=== PATIENT | female | born 1965 | race Two or more races ===

== ENCOUNTER 2017-12-05 18:26 | Emergency (ER) | payer MEDICAID ==
[~2017-12-05] VITALS: Ht 154.9 cm; Wt 79.8 kg
[~2017-12-05 18:26] MED LIST: PROC5TAB56 PO
[2017-12-05 18:57] LABS: BASOPHILS % (AUTO) 0.5 % (0-1); EOSINOPHILS # (AUTO) 0.1 X10'3 (0-0.9); EOSINOPHILS % (AUTO) 1.5 % (0-6); HEMATOCRIT 43.8 % (35.0-45.0); HEMOGLOBIN 14.9 g/dl (12.0-16.0); LYMPHOCYTES # (AUTO) 1.8 X10'3 (1.1-4.8); LYMPHOCYTES % (AUTO) 33.1 % (21-51); MEAN CORPUSCULAR HGB CONC 34.1 % (33.0-36.5); MEAN PLATELET VOLUME 9.8 FL (7.4-10.4); MONOCYTES # (AUTO) 0.7 X10'3 (0-0.9); MONOCYTES % (AUTO) 13.4 % (2-12); NEUTROPHILS # (AUTO) 2.8 X10'3 (1.8-7.7); NEUTROPHILS % (AUTO) 51.5 % (42-75); PLATELET COUNT 218 X10'3 (140-440); RED BLOOD COUNT 4.99 X10'6 (4.20-5.60); RED CELL DISTRIBUTION WIDTH 13.3 % (11.5-14.5); WHITE BLOOD COUNT 5.4 X10'3 (4.5-11.0)
[2017-12-05 19:22] LABS: ALANINE AMINOTRANSFERASE 83 U/L (12-78); ALBUMIN/GLOBULIN RATIO 0.9 (1.1-1.5); ALKALINE PHOSPHATASE 81 IU/L (46-116); ANION GAP 7 (8-16); ASPARTATE AMINO TRANSFERASE 40 U/L (10-37); BILIRUBIN,TOTAL 0.7 MG/DL (0.1-1.0); BLOOD UREA NITROGEN 15 MG/DL (7-18); BUN/CREATININE RATIO 16.5 (6.6-38.0); CALCIUM 9.8 MG/DL (8.5-10.1); CHLORIDE 100 MMOL/L (99-107); CREATININE 0.91 MG/DL (0.40-0.90); GLUCOSE 93 MG/DL (70-104); LIPASE 123 U/L (73-393); POTASSIUM 3.7 MMOL/L (3.5-5.1); SODIUM 134 MMOL/L (135-145); TOTAL CARBON DIOXIDE 27.2 MMOL/L (24-32); TOTAL PROTEIN 8.6 G/DL (6.4-8.2); eGFR 65 ML/MIN
[2017-12-05 19:32] LABS: URINE HCG NEGATIVE (NEG)
[2017-12-05 19:34] LABS: COLOR,URINE YELLOW (Yellow); GLUCOSE, URINE NEGATIVE (Neg); KETONES,URINE TRACE mg/dl (Neg); NITRITES, URINE NEGATIVE (Neg); OCCULT BLOOD,URINE NEGATIVE (Neg); PH,URINE 5.5 (4.8-8.0); PROTEIN,URINE TRACE mg/dl (Neg); UA COLLECTION TYPE CLN CATCH MIDSTREAM; UROBILINOGEN,URINE 0.2 E.U/dL (0.2-1.0)
[2017-12-05 19:35] LABS: LEUKOCYTE ESTERASE ,URINE NEGATIVE (Neg)
[2017-12-05 19:36] LABS: CLARITY,URINE CLEAR (Clear)
[2017-12-05] MEDS ORDERED: ketorolac trometh. 30mg/ml inj. IV ONE (20:15)
[2017-12-05] MEDS ORDERED: ondansetron/PF 4mg/2ml inj IV ONE (20:15)
[2017-12-05] MEDS ORDERED: normal saline 1000ML IV soln IVB ONE (20:15)
[2017-12-05] MEDS ORDERED: ketorolac tromethamine 15mg/ml inj. IV ONE (20:20)
[2017-12-05 20:26] VITALS: BP 155/74
[2017-12-05 20:28] LABS: AMORPHOUS URATES 1+; BACTERIA,URINE FEW /HPF (Neg); CAL OXALATE CRYSTALS 1+ /HPF (NEGATIVE); MUCUS STRANDS MODERATE /LPF (Neg); RBC,URINE NONE SEEN /HPF (0-2); SQUAMOUS EPITHELIAL CELL,UR MANY /LPF (FEW); WBC,URINE 0-4 /HPF (0-4)
[2017-12-05 20:29] LABS: HYALINE CASTS 0-3 /LPF (NEGATIVE)
== END 2017-12-05 21:45 | disposition home or self-care (01) ==
LOC: ER 18:27
DX: R10.32 Left lower quadrant pain (principal); E11.9 Type 2 diabetes mellitus without complications; Z88.0 Allergy status to penicillin
CPT/HCPCS: 36415; 74176; 80053; 81001; 81025; 83690; 85025; 85610; 96361; 96374; 96375; 99285; J2405; J7030; J1885

== ENCOUNTER 2017-12-07 17:42 | Emergency (ER) | payer MEDICAID ==
[~2017-12-07] VITALS: Ht 154.9 cm; Wt 81.8 kg
[2017-12-07] MEDS ORDERED: ketorolac tromethamine 15mg/ml inj. IM ONE (18:10)
[2017-12-07] MEDS ORDERED: IBUP-1984 PO (18:11)
[2017-12-07] MEDS ORDERED: CYCL-1 PO (18:11)
[2017-12-07 18:36] VITALS: BP 141/80
== END 2017-12-07 18:37 | disposition home or self-care (01) ==
LOC: ER 17:42
DX: S76.912A Strain of unspecified muscles, fascia and tendons at thigh level, left thigh, initial encounter (principal); E11.9 Type 2 diabetes mellitus without complications; Z88.0 Allergy status to penicillin; X50.0XXA Overexertion from strenuous movement or load, initial encounter; Y93.89 Activity, other specified; Y92.091 Bathroom in other non-institutional residence as the place of occurrence of the external cause; Y99.8 Other external cause status
CPT/HCPCS: 96372; 99284; J1885

== ENCOUNTER 2018-06-21 08:56 | Emergency (ER) | payer MEDICAID ==
[~2018-06-21] VITALS: Ht 154.9 cm; Wt 85.0 kg
[~2018-06-21 08:56] MED LIST changes: +CYCL-1 PO
[2018-06-21] MEDS ORDERED: GUAI473S11 PO (09:48)
[2018-06-21] MEDS ORDERED: NYST1000 PO (09:48)
[2018-06-21] MEDS ORDERED: ATRNS (09:48)
[2018-06-21] MEDS ORDERED: BENZ-38 PO (09:48)
[2018-06-21 10:54] VITALS: BP 172/97
== END 2018-06-21 10:56 | disposition home or self-care (01) ==
LOC: ER 08:58
DX: R09.81 Nasal congestion (principal); B37.9 Candidiasis, unspecified; E11.9 Type 2 diabetes mellitus without complications; Z88.0 Allergy status to penicillin
CPT/HCPCS: 99283

== ENCOUNTER 2018-07-12 08:47 | Emergency (ER) | payer MEDICAID ==
[~2018-07-12] VITALS: Ht 157.5 cm; Wt 83.2 kg
[~2018-07-12 08:47] MED LIST changes: +ATRNS; +BENZ-38 PO; +DEC4T PO
[2018-07-12 08:49] VITALS: BP 161/89
[2018-07-12] MEDS ORDERED: OLOP2.5D OP (09:10)
== END 2018-07-12 09:45 | disposition home or self-care (01) ==
LOC: ER 08:47
DX: H26.9 Unspecified cataract (principal); H53.8 Other visual disturbances; H57.89 Other specified disorders of eye and adnexa; E11.9 Type 2 diabetes mellitus without complications; Z88.0 Allergy status to penicillin
CPT/HCPCS: 99283

== ENCOUNTER 2019-03-26 22:04 | Emergency (ER) | payer MEDICAID ==
[~2019-03-26] VITALS: Ht 154.9 cm; Wt 82.0 kg
[~2019-03-26 22:04] MED LIST changes: -BENZ-38 PO; +OLOP2.5D OP
[2019-03-26 22:09] VITALS: BP 148/86
[2019-03-26] MEDS: proparacaine 0.5% ophthalmic drops 15ml EACHEYE ONE ×2 (23:22→23:23)
[2019-03-26] MEDS ORDERED: ERYT1OIN6 LEFTEYE (23:29)
[2019-03-26] MEDS ORDERED: ACYC-202 PO (23:29)
[2019-03-26] MEDS ORDERED: HYDR-3965 PO (23:29)
[2019-03-26] MEDS ORDERED: erythromycin ophthalmic ointment 1gm tube LEFTEYE ONE (23:30)
[2019-03-26] MEDS ORDERED: HYDROcodone/acetaminophen 5mg/325mg tablet PO ONE (23:30)
== END 2019-03-27 00:17 | disposition home or self-care (01) ==
LOC: ER 22:04
DX: H57.12 Ocular pain, left eye (principal); E11.9 Type 2 diabetes mellitus without complications; Z88.0 Allergy status to penicillin; Z79.899 Other long term (current) drug therapy
CPT/HCPCS: 99284

== ENCOUNTER 2019-07-03 08:39 | Emergency (ER) | payer MEDICAID ==
[~2019-07-03] VITALS: Ht 154.9 cm; Wt 81.8 kg
[2019-07-03 08:41] VITALS: BP 146/97
[2019-07-03] MEDS ORDERED: ketorolac tromethamine 15mg/ml inj. IM ONE (09:10)
[2019-07-03] MEDS ORDERED: BUPIVAcaine 0.5% W/EPI /PF 30ml vial IJ ONE (09:25)
== END 2019-07-03 10:53 | disposition home or self-care (01) ==
LOC: ER 08:40
DX: M25.512 Pain in left shoulder (principal); E11.9 Type 2 diabetes mellitus without complications; Z88.0 Allergy status to penicillin; Z79.899 Other long term (current) drug therapy; W18.39XA Other fall on same level, initial encounter; Y93.89 Activity, other specified; Y92.89 Other specified places as the place of occurrence of the external cause; Y99.8 Other external cause status
CPT/HCPCS: 20552; 73030; 96372; 99284; J1885

== ENCOUNTER 2022-01-27 19:13 | Emergency (ER) | payer MEDICAID ==
[~2022-01-27] VITALS: Ht 154.9 cm; Wt 62.0 kg
[~2022-01-27 19:13] MED LIST changes: -OLOP2.5D OP; +OLOP2.5D12 OP
[2022-01-27 19:44] VITALS: BP 140/81
[2022-01-27 20:15] LABS: BASOPHILS # (AUTO) 0.1 X10'3 (0-0.2); BASOPHILS % (AUTO) 0.4 % (0-1); EOSINOPHILS # (AUTO) 0.1 X10'3 (0-0.9); EOSINOPHILS % (AUTO) 1.1 % (0-6); HEMATOCRIT 41.6 % (35.0-45.0); HEMOGLOBIN 14.8 g/dl (12.0-16.0); LYMPHOCYTES # (AUTO) 1.7 X10'3 (1.1-4.8); LYMPHOCYTES % (AUTO) 13.9 % (21-51); MEAN CORPUSCULAR HEMOGLOBIN 30.2 PG (27.0-31.0); MEAN CORPUSCULAR HGB CONC 35.5 g/dL (33.0-36.5); MEAN CORPUSCULAR VOLUME 85.1 FL (78-98); MEAN PLATELET VOLUME 8.9 FL (7.4-10.4); MONOCYTES # (AUTO) 0.9 X10'3 (0-0.9); MONOCYTES % (AUTO) 7.5 % (2-12); NEUTROPHILS # (AUTO) 9.2 X10'3 (1.8-7.7); NEUTROPHILS % (AUTO) 77.1 % (42-75); PLATELET COUNT 242 X10'3 (140-440); RED BLOOD COUNT 4.89 X10'6 (4.20-5.60); RED CELL DISTRIBUTION WIDTH 13.4 % (11.5-14.5)
[2022-01-27 20:26] LABS: ALANINE AMINOTRANSFERASE 21 U/L (12-78); ALBUMIN 3.5 G/DL (3.4-5.0); ALBUMIN/GLOBULIN RATIO 0.6 (1.1-1.5); ALKALINE PHOSPHATASE 110 IU/L (46-116); ANION GAP 10 (8-16); ASPARTATE AMINO TRANSFERASE 13 U/L (10-37); BILIRUBIN,TOTAL 0.7 MG/DL (0.1-1.0); BLOOD UREA NITROGEN 12 MG/DL (7-18); BUN/CREATININE RATIO 15.2 (6.6-38.0); CALCIUM 9.7 MG/DL (8.5-10.1); CHLORIDE 91 MMOL/L (99-107); CREATININE 0.79 MG/DL (0.40-0.90); GLUCOSE 312 MG/DL (70-104); POTASSIUM 4.1 MMOL/L (3.5-5.1); SODIUM 128 MMOL/L (135-145); TOTAL CARBON DIOXIDE 27.4 MMOL/L (24-32); eGFR 75 ML/MIN
[2022-01-29] MEDS ORDERED: SULF1TAB49 PO (22:47)
== END 2022-01-28 13:17 | disposition left against medical advice (07) ==
LOC: ER 19:14
DX: M54.9 Dorsalgia, unspecified (principal); Z53.21 Procedure and treatment not carried out due to patient leaving prior to being seen by health care provider; M54.2 Cervicalgia
CPT/HCPCS: 36415; 71045; 80053; 82948; 83880; 84484; 85025; 93005; 99285

== ENCOUNTER 2022-01-29 15:14 | Emergency (ER) | payer MEDICAID ==
[~2022-01-29] VITALS: Ht 157.5 cm; Wt 81.8 kg
[2022-01-29] MEDS ORDERED: normal saline 1000ML IV soln IVB ONE (15:20)
[2022-01-29] MEDS ORDERED: normal saline 1000ml 1,000 ML IV ONE (15:50)
[2022-01-29 16:02] LABS: BASOPHILS % (AUTO) 0.3 % (0-1); EOSINOPHILS # (AUTO) 0.1 X10'3 (0-0.9); EOSINOPHILS % (AUTO) 1.4 % (0-6); HEMATOCRIT 39.5 % (35.0-45.0); HEMOGLOBIN 13.7 g/dl (12.0-16.0); LYMPHOCYTES # (AUTO) 1.2 X10'3 (1.1-4.8); LYMPHOCYTES % (AUTO) 11.3 % (21-51); MEAN CORPUSCULAR HEMOGLOBIN 30.4 PG (27.0-31.0); MEAN CORPUSCULAR HGB CONC 34.6 g/dL (33.0-36.5); MEAN CORPUSCULAR VOLUME 87.9 FL (78-98); MEAN PLATELET VOLUME 9.7 FL (7.4-10.4); MONOCYTES % (AUTO) 9.5 % (2-12); NEUTROPHILS # (AUTO) 8.4 X10'3 (1.8-7.7); NEUTROPHILS % (AUTO) 77.5 % (42-75); PLATELET COUNT 248 X10'3 (140-440); RED BLOOD COUNT 4.49 X10'6 (4.20-5.60); RED CELL DISTRIBUTION WIDTH 13.5 % (11.5-14.5); WHITE BLOOD COUNT 10.9 X10'3 (4.5-11.0)
[2022-01-29 16:32] LABS: ALANINE AMINOTRANSFERASE 19 U/L (12-78); ALBUMIN 3.1 G/DL (3.4-5.0); ALBUMIN/GLOBULIN RATIO 0.6 (1.1-1.5); ALKALINE PHOSPHATASE 112 IU/L (46-116); ANION GAP 11 (8-16); ASPARTATE AMINO TRANSFERASE 15 U/L (10-37); BILIRUBIN,TOTAL 0.5 MG/DL (0.1-1.0); BLOOD UREA NITROGEN 13 MG/DL (7-18); BUN/CREATININE RATIO 12.3 (6.6-38.0); CALCIUM 9.3 MG/DL (8.5-10.1); CHLORIDE 90 MMOL/L (99-107); CREATININE 1.06 MG/DL (0.40-0.90); MAGNESIUM 1.4 MG/DL (1.5-2.4); PHOSPHORUS 3.3 MG/DL (2.3-4.5); POTASSIUM 4.1 MMOL/L (3.5-5.1); SODIUM 125 MMOL/L (135-145); TOTAL CARBON DIOXIDE 24.5 MMOL/L (24-32); TOTAL PROTEIN 8.1 G/DL (6.4-8.2); eGFR 53 ML/MIN
[2022-01-29 16:42] LABS: GLUCOSE 552 MG/DL (70-104)
[2022-01-29 16:43] VITALS: BP 143/85
[2022-01-29] MEDS ORDERED: insulin regular, human 10 units/0.1 ml syringe IV ONE (19:40)
[2022-01-29] MEDS ORDERED: sulfamethoxazole/trimethoprim DS (800/160mg) tablet PO ONE (21:50)
[2022-01-29] MEDS ORDERED: HYDROcodone/acetaminophen 5mg/325mg tablet PO ONE (22:05)
[2022-01-29] MEDS ORDERED: ondansetron 4mg rapidly disintigrating tab PO ONE (22:10)
[2022-01-29] MEDS ORDERED: SULF1TAB49 PO (22:47)
== END 2022-01-30 00:10 | disposition home or self-care (01) ==
LOC: ER 15:14
DX: L02.811 Cutaneous abscess of head [any part, except face] (principal); E11.65 Type 2 diabetes mellitus with hyperglycemia; R53.1 Weakness; Z88.0 Allergy status to penicillin; Z79.899 Other long term (current) drug therapy
CPT/HCPCS: 36415; 71045; 80053; 82948; 83735; 84100; 84443; 84484; 85025; 93005; 96361; 96374; 99285; J1815; J7030

== ENCOUNTER 2022-05-02 23:16 | Emergency (ER) | payer MEDICAID ==
[~2022-05-02] VITALS: Ht 157.5 cm; Wt 81.8 kg
[2022-05-02 23:46] LABS: CLARITY,URINE CLEAR (Clear); COLOR,URINE YELLOW (Yellow); GLUCOSE, URINE >=1000 mg/dl (Neg); KETONES,URINE 15 mg/dl (Neg); LEUKOCYTE ESTERASE ,URINE TRACE (Neg); NITRITES, URINE NEGATIVE (Neg); OCCULT BLOOD,URINE TRACE-INTACT (Neg); PROTEIN,URINE NEGATIVE (Neg); UROBILINOGEN,URINE 0.2 E.U/dL (0.2-1.0)
[2022-05-02 23:48] LABS: BASOPHILS % (AUTO) 0.3 % (0-1); EOSINOPHILS # (AUTO) 0.2 X10'3 (0-0.9); EOSINOPHILS % (AUTO) 2.4 % (0-6); HEMATOCRIT 44.3 % (35.0-45.0); HEMOGLOBIN 15.4 g/dl (12.0-16.0); LYMPHOCYTES # (AUTO) 1.7 X10'3 (1.1-4.8); LYMPHOCYTES % (AUTO) 23.2 % (21-51); MEAN CORPUSCULAR HGB CONC 34.8 g/dL (33.0-36.5); MEAN CORPUSCULAR VOLUME 86.2 FL (78-98); MEAN PLATELET VOLUME 9.1 FL (7.4-10.4); MONOCYTES # (AUTO) 0.7 X10'3 (0-0.9); MONOCYTES % (AUTO) 9.3 % (2-12); NEUTROPHILS # (AUTO) 4.8 X10'3 (1.8-7.7); NEUTROPHILS % (AUTO) 64.8 % (42-75); PLATELET COUNT 282 X10'3 (140-440); RED BLOOD COUNT 5.14 X10'6 (4.20-5.60); RED CELL DISTRIBUTION WIDTH 14.1 % (11.5-14.5); WHITE BLOOD COUNT 7.4 X10'3 (4.5-11.0)
[2022-05-02 23:51] LABS: UA COLLECTION TYPE CLN CATCH MIDSTREAM
[2022-05-02 23:54] LABS: BACTERIA,URINE FEW /HPF (Neg); MUCUS STRANDS FEW /LPF (Neg); RBC,URINE 0-2 /HPF (0-2); SQUAMOUS EPITHELIAL CELL,UR FEW /LPF (FEW); WBC,URINE 0-4 /HPF (0-4)
[2022-05-02 23:55] LABS: ALANINE AMINOTRANSFERASE 29 U/L (12-78); ALBUMIN 3.9 G/DL (3.4-5.0); ALBUMIN/GLOBULIN RATIO 0.8 (1.1-1.5); ALKALINE PHOSPHATASE 109 IU/L (46-116); ANION GAP 7 (8-16); ASPARTATE AMINO TRANSFERASE 16 U/L (10-37); BILIRUBIN,TOTAL 0.5 MG/DL (0.1-1.0); BLOOD UREA NITROGEN 17 MG/DL (7-18); BUN/CREATININE RATIO 19.1 (6.6-38.0); CALCIUM 9.8 MG/DL (8.5-10.1); CHLORIDE 92 MMOL/L (99-107); CREATININE 0.89 MG/DL (0.40-0.90); GLUCOSE 348 MG/DL (70-104); LIPASE 125 U/L (73-393); POTASSIUM 4.2 MMOL/L (3.5-5.1); SODIUM 128 MMOL/L (135-145); TOTAL CARBON DIOXIDE 28.6 MMOL/L (24-32); TOTAL PROTEIN 8.7 G/DL (6.4-8.2); eGFR 65 ML/MIN
[2022-05-03] MEDS ORDERED: normal saline 1000ml 1,000 ML IV ONE (00:45)
[2022-05-03] MEDS ORDERED: fentaNYL/PF 50MCG/1 ML 2ML syringe IV ONE (00:45)
[2022-05-03] MEDS ORDERED: ketorolac trometh. 30mg/ml inj. IV ONE (00:45)
[2022-05-03] MEDS ORDERED: ondansetron/PF 4mg/2ml inj IV ONE (00:45)
[2022-05-03] MEDS ORDERED: insulin regular, human 10 units/0.1 ml syringe IV ONE (01:15)
[2022-05-03] MEDS ORDERED: sodium chloride 1gm tablet PO ONE (01:15)
[2022-05-03 02:38] LABS: URINE AMPHETAMINE SCREEN NEGATIVE (Neg); URINE BARBITUATE SCREEN NEGATIVE (Neg); URINE BENZODIAZEPINES SCREEN NEGATIVE (Neg); URINE CANNABINOID SCREEN NEGATIVE (Neg); URINE COCAINE SCREEN NEGATIVE (Neg); URINE METHADONE SCREEN NEGATIVE (Neg); URINE OPIATE SCREEN NEGATIVE (Neg); URINE PHENCYCLIDINE SCREEN NEGATIVE (Neg)
[2022-05-03] MEDS ORDERED: HYDROcodone/acetaminophen 10/325mg tab PO ONE (03:35)
[2022-05-03 05:10] VITALS: BP 94/56
[2022-05-03] MEDS ORDERED: HYDR-3965 PO (05:16)
[2022-05-03] MEDS ORDERED: ONDA8TAB13 PO (05:16)
== END 2022-05-03 05:30 | disposition home or self-care (01) ==
LOC: ER 23:16
DX: R10.11 Right upper quadrant pain (principal); E11.9 Type 2 diabetes mellitus without complications; Z88.0 Allergy status to penicillin; Z79.899 Other long term (current) drug therapy
CPT/HCPCS: 36415; 74176; 80053; 80305; 81001; 82948; 83690; 84145; 85025; 87088; 96361; 96374; 96375; 99285; J1815; J1885; J2405; J3010; J7030

== ENCOUNTER 2022-05-17 13:14 | Emergency (ER) | payer MEDICAID ==
[~2022-05-17] VITALS: Ht 157.5 cm; Wt 81.0 kg
[~2022-05-17 13:14] MED LIST changes: +HYDR-3965 PO; +ONDA8TAB13 PO
[2022-05-17] MEDS ORDERED: normal saline 1000ml 1,000 ML IV ONE (14:55)
[2022-05-17 14:58] LABS: BASOPHILS % (AUTO) 0.3 % (0-1); EOSINOPHILS # (AUTO) 0.1 X10'3 (0-0.9); EOSINOPHILS % (AUTO) 1.6 % (0-6); HEMATOCRIT 45.3 % (35.0-45.0); HEMOGLOBIN 15.6 g/dl (12.0-16.0); LYMPHOCYTES # (AUTO) 1.5 X10'3 (1.1-4.8); LYMPHOCYTES % (AUTO) 21.8 % (21-51); MEAN CORPUSCULAR HEMOGLOBIN 30.2 PG (27.0-31.0); MEAN CORPUSCULAR HGB CONC 34.4 g/dL (33.0-36.5); MEAN CORPUSCULAR VOLUME 87.9 FL (78-98); MEAN PLATELET VOLUME 9.6 FL (7.4-10.4); MONOCYTES # (AUTO) 0.6 X10'3 (0-0.9); MONOCYTES % (AUTO) 9.2 % (2-12); NEUTROPHILS # (AUTO) 4.6 X10'3 (1.8-7.7); NEUTROPHILS % (AUTO) 67.1 % (42-75); PLATELET COUNT 226 X10'3 (140-440); RED BLOOD COUNT 5.16 X10'6 (4.20-5.60); RED CELL DISTRIBUTION WIDTH 13.9 % (11.5-14.5); WHITE BLOOD COUNT 6.9 X10'3 (4.5-11.0)
[2022-05-17 15:18] LABS: ALANINE AMINOTRANSFERASE 29 U/L (12-78); ALBUMIN 3.8 G/DL (3.4-5.0); ALBUMIN/GLOBULIN RATIO 0.8 (1.1-1.5); ALKALINE PHOSPHATASE 108 IU/L (46-116); AMYLASE 55 U/L (25-115); ASPARTATE AMINO TRANSFERASE 20 U/L (10-37); BILIRUBIN,TOTAL 0.3 MG/DL (0.1-1.0); BLOOD UREA NITROGEN 20 MG/DL (7-18); BUN/CREATININE RATIO 17.1 (6.6-38.0); CALCIUM 9.8 MG/DL (8.5-10.1); CREATININE 1.17 MG/DL (0.40-0.90); LIPASE 134 U/L (73-393); TOTAL PROTEIN 8.8 G/DL (6.4-8.2); eGFR 48 ML/MIN
[2022-05-17 15:32] LABS: CLARITY,URINE CLEAR (Clear); COLOR,URINE STRAW (Yellow); GLUCOSE, URINE >=1000 mg/dl (Neg); KETONES,URINE NEGATIVE (Neg); LEUKOCYTE ESTERASE ,URINE NEGATIVE (Neg); NITRITES, URINE NEGATIVE (Neg); OCCULT BLOOD,URINE TRACE-INTACT (Neg); PROTEIN,URINE NEGATIVE (Neg); UROBILINOGEN,URINE 0.2 E.U/dL (0.2-1.0)
[2022-05-17 15:35] LABS: ABG BASE EXCESS -2.1 mmol/L (-2.0-2.0); ABG HCO3 22.3 mmol/L (22.0-26.0); ABG OXYGEN SATURATION 95.7 % (94-97); ABG PCO2 (T) 35.8 mmHg (32.0-45.0); ABG PO2 (T) 73.6 mmHg (75.0-100.0); ALLEN'S TEST POSITIVE; FCOHb 0.1 % (0.0-3.9); FMetHb 0.3 % (0.0-1.5); FO2Hb 95.3 % (94-97); PATIENT TEMPERATURE 36.2; TOTAL HEMOGLOBIN 14.8 G/dl (12.0-16.0)
[2022-05-17 15:35] LABS: UA COLLECTION TYPE VOIDED
[2022-05-17] MEDS ORDERED: ondansetron/PF 4mg/2ml inj IV ONE (15:40)
[2022-05-17] MEDS ORDERED: morphine 2 MG/ML inj. syringe IV ONE (15:40)
[2022-05-17 15:43] LABS: SQUAMOUS EPITHELIAL CELL,UR FEW /LPF (FEW)
[2022-05-17 15:46] LABS: BACTERIA,URINE FEW /HPF (Neg); RBC,URINE 0-2 /HPF (0-2); WBC,URINE 0-4 /HPF (0-4)
[2022-05-17 15:48] LABS: ANION GAP 12 (8-16); CHLORIDE 94 MMOL/L (99-107); POTASSIUM 4.3 MMOL/L (3.5-5.1); SODIUM 130 MMOL/L (135-145)
[2022-05-17] MEDS ORDERED: insulin regular, human 10 units/0.1 ml syringe SQ ONE ×2 (15:55→19:10)
[2022-05-17] MEDS ORDERED: normal saline 1000ML IV soln IVB ONE (15:55)
[2022-05-17 16:04] LABS: GLUCOSE 597 MG/DL (70-104)
[2022-05-17] MEDS ORDERED: NEED-136 SQ (19:31)
[2022-05-17 19:52] VITALS: BP 126/79
== END 2022-05-17 19:55 | disposition home or self-care (01) ==
LOC: ER 13:14
DX: E11.65 Type 2 diabetes mellitus with hyperglycemia (principal); R10.31 Right lower quadrant pain; Z88.0 Allergy status to penicillin
CPT/HCPCS: 36415; 36600; 74176; 80053; 81001; 82150; 82803; 82948; 83690; 85018; 85025; 96361; 96372; 96374; 96375; 99285; J1815; J2270; J2405; J7030

== ENCOUNTER 2022-06-04 09:16 | Emergency (ER) | payer MEDICAID ==
[~2022-06-04] VITALS: Ht 175.3 cm; Wt 65.9 kg
[~2022-06-04 09:16] MED LIST changes: +NEED-136 SQ
[2022-06-04 09:45] VITALS: BP 120/72
[2022-06-04] MEDS ORDERED: LIDO700A32 TOP (12:25)
[2022-06-04] MEDS ORDERED: NAPR-56 PO (12:25)
== END 2022-06-04 12:37 | disposition home or self-care (01) ==
LOC: ER 09:17
DX: S39.012A Strain of muscle, fascia and tendon of lower back, initial encounter (principal); M54.31 Sciatica, right side; E11.9 Type 2 diabetes mellitus without complications; F17.200 Nicotine dependence, unspecified, uncomplicated; Z88.0 Allergy status to penicillin; Z88.8 Allergy status to other drugs, medicaments and biological substances; Z88.4 Allergy status to anesthetic agent; Z88.5 Allergy status to narcotic agent; X58.XXXA Exposure to other specified factors, initial encounter; Y93.89 Activity, other specified; Y92.89 Other specified places as the place of occurrence of the external cause; Y99.8 Other external cause status
CPT/HCPCS: 72100; 72170; 99284